=== PATIENT | female | born 1955 | race Caucasian/White ===

== ENCOUNTER 2024-12-04 12:50 | Inpatient (IN) | payer MEDICARE, MEDICAID ==
[~2024-12-04] VITALS: Ht 157.5 cm; Wt 42.4 kg
[2024-12-04 12:52] VITALS: O2SAT 99
[2024-12-04 14:34] LABS: HEMATOCRIT. 38.9 % (36.0-48.0); HEMOGLOBIN. 13.0 g/dL (12.0-16.0); MEAN PLATELET VOLUME 8.0 fl (7.4-10.4); PLATELET 261 x1000/uL (130-400); RED BLOOD CELL COUNT 4.16 mill/uL (4.2-5.4); RED CELL DISTRIBUTION WIDTH 13.9 % (11.6-14.6)
[2024-12-04 14:46] LABS: INR 1.0
[2024-12-04 14:49] LABS: CREATININE 0.5 mg/dL (0.6-1.0); UREA NITROGEN BLOOD 14 mg/dL (9-23)
[2024-12-04 14:51] LABS: ASPARTATE AMINOTRANSFERASE 44 IU/L (<34); BILIRUBIN DIRECT 0.1 mg/dL (<=3.0); BILIRUBIN TOTAL 0.5 mg/dL (0.1-1.0); PROTEIN TOTAL 7.1 g/dL (6.0-8.3)
[2024-12-04 14:55] LABS: BAND% 24.0 % (1.0-6.0); EOSINOPHILS % MANUAL 1.0 % (0.0-5.0); LYMPHOCYTES % MANUAL 9.0 % (20.0-60.0); MONOCYTES % MANUAL 4.0 % (2.0-8.0); NEUTROPHILS % MANUAL 62.0 % (45.0-75.0); PLATELET ESTIMATE NORMAL; TROPONIN I HIGH SENSITIVITY 218 ng/L (3.0-34)
[2024-12-04] MEDS: ASPIRIN 325MG EC TABLET PO ONE (15:54)
[2024-12-04] MEDS: ENOXAPARIN 40MG/0.4ML SYR SUBCUT ONE (15:58)
[2024-12-04 16:47] LABS: TROPONIN I HIGH SENSITIVITY 437 ng/L (3.0-34)
[2024-12-04 20:00] VITALS: BP 105/61; PULSE 57; RESP 18; TEMP 36.5848
[2024-12-04] MEDS ORDERED: DOCUSATE SODIUM 100MG CAPSULE PO PRN (20:30)
[2024-12-04] MEDS ORDERED: ACETAMINOPHEN 650MG SUPP PR PRN (20:30)
[2024-12-04] MEDS ORDERED: IPRATROPIUM/ALBUTEROL 0.5-3(2.5)MG/3ML NEB HHN PRN (20:30)
[2024-12-04] MEDS ORDERED: GUAIFENESIN 200MG/10ML SUGAR FREE UDC PO PRN (20:30)
[2024-12-04] MEDS ORDERED: ONDANSETRON HCL 4MG/2ML INJ IV PRN (20:30)
[2024-12-04] MEDS ORDERED: PRAV10TA35 PO (22:05)
[2024-12-04] MEDS ORDERED: ESCI20TA37 PO (22:05)
[2024-12-04] MEDS ORDERED: ARIP5TAB51 PO (22:05)
[2024-12-04] MEDS ORDERED: MULT-1318 PO (22:53)
[2024-12-04] MEDS ORDERED: CHOL2000 PO (22:53)
[2024-12-04] MEDS: PIPERACILLIN/TAZO 3.375G/50ML 50 ML IV SCH (23:23)
[2024-12-04] MEDS: DEXT 5%/0.45% NACL 1000ML 1,000 ML IV ONE (23:23)
[2024-12-05] VITALS: BP 78/44; PULSE 70; RESP 18; TEMP 36.3; O2SAT 94
[2024-12-05 00:05] LABS: PHOSPHORUS 3.8 mg/dL (2.5-4.9)
[2024-12-05] MEDS: VANCOMYCIN 1G PREMIX 200 ML IV SCH (00:06)
[2024-12-05 00:07] LABS: CREATINE KINASE MB FRACTION 3.1 ng/mL (0.5-3.6)
[2024-12-05 00:49] LABS: TROPONIN I HIGH SENSITIVITY 454 ng/L (3.0-34)
[2024-12-05 04:00] VITALS: BP 74/40; PULSE 66; RESP 18; TEMP 36.2; O2SAT 98
[2024-12-05 05:55] LABS: CLARITY URINE CLEAR (CLEAR); COLOR URINE YELLOW (YELLOW); GLUCOSE URINE NEGATIVE (NEGATIVE); KETONES URINE NEGATIVE (NEGATIVE); LEUKOCYTE ESTERASE URINE NEGATIVE (NEGATIVE); NITRITE URINE NEGATIVE (NEGATIVE); OCCULT BLOOD URINE NEGATIVE (NEGATIVE); PH URINE 6.0 (4.5-8.0); PROTEIN URINE TRACE (NEGATIVE); SPECIFIC GRAVITY URINE 1.019 (1.005-1.030); UROBILINOGEN URINE 0.2 E.U./dL (0.2-1.0)
[2024-12-05 06:24] LABS: SQUAMOUS EPITHELIAL CELL URINE FEW /lpf (RARE/1+)
[2024-12-05 06:25] LABS: PLATELET 218 x1000/uL (130-400); RED BLOOD CELL COUNT 3.75 mill/uL (4.2-5.4); RED CELL DISTRIBUTION WIDTH 13.6 % (11.6-14.6)
[2024-12-05 06:28] LABS: RBC URINE 0-2 /hpf (0-2)
[2024-12-05 06:28] LABS: CREATINE KINASE MB FRACTION 2.6 ng/mL (0.5-3.6); CREATININE 0.4 mg/dL (0.6-1.0); TRIGLYCERIDE 49 mg/dL (0-150); UREA NITROGEN BLOOD 13 mg/dL (9-23)
[2024-12-05 06:29] LABS: LDL CHOLESTEROL 130 mg/dL (5-100)
[2024-12-05 06:29] LABS: BACTERIA URINE NONE SEEN
[2024-12-05 06:30] LABS: PHOSPHORUS 3.5 mg/dL (2.5-4.9)
[2024-12-05 06:32] LABS: T4 FREE 1.01 ng/dL (0.89-1.76)
[2024-12-05 06:34] LABS: TROPONIN I HIGH SENSITIVITY 197 ng/L (3.0-34)
[2024-12-05] MEDS: MIDODRINE HCL 5MG TABLET PO PRN ×2 (08:50→17:24)
[2024-12-05] MEDS: PANTOPRAZOLE SODIUM 40 MG/VIAL IV SCH (08:59)
[2024-12-05] MEDS: CHOLECALCIFEROL (D3) 1000 UNIT TABLET PO SCH (09:00)
[2024-12-05] MEDS ORDERED: VANCOMYCIN 500MG/100ML IV SCH (09:00)
[2024-12-05] MEDS: MULTIVITAMINS,THER W-MINERALS TABLET PO SCH (09:00)
[2024-12-05] MEDS: CITALOPRAM HYDROBROMIDE 10MG TABLET PO SCH (09:00)
[2024-12-05] MEDS: ASPIRIN 81MG TABLET PO SCH ×2 (09:00)
[2024-12-05] MEDS ORDERED: VANCOMYCIN 500 MG in DEXT 5% WATER 100 ML IV SCH (09:00)
[2024-12-05] MEDS: SODIUM CHLORIDE 0.9% 1,000 ML IV ONE (09:09)
[2024-12-05] MEDS: ENOXAPARIN 30MG/0.3ML SYR SUBCUT SCH (09:10)
[2024-12-05 09:37] LABS: TRIGLYCERIDE 50.0 mg/dL (0-150)
[2024-12-05 09:38] LABS: LDL CHOLESTEROL 133.0 mg/dL (5-100)
[2024-12-05 09:42] LABS: T4 FREE 1.02 ng/dL (0.89-1.76)
[2024-12-05] MEDS: SODIUM CHLORIDE 0.9% 1,000 ML IV SCH (15:42)
[2024-12-05] MEDS ORDERED: MIDODRINE HCL 5MG TABLET ONE (15:58)
[2024-12-05 16:00] VITALS: BP 82/41; PULSE 51; RESP 16; TEMP 36.3; O2SAT 99
[2024-12-05] MEDS: FLUDROCORTISONE ACETATE 0.1MG TABLET PO SCH (16:17)
[2024-12-05 18:38] VITALS: BP 98/36
[2024-12-05 20:00] VITALS: BP 91/34; PULSE 56; RESP 16; TEMP 36.4; O2SAT 98
[2024-12-05] MEDS: VANCOMYCIN 750MG PREMIX 150 ML IV SCH (20:29)
[2024-12-05] MEDS: ARIPIPRAZOLE 5MG TABLET PO SCH (20:30)
[2024-12-05] MEDS: ATORVASTATIN CALCIUM 20MG TABLET PO SCH (20:30)
[2024-12-05] MEDS: SODIUM CHLORIDE 0.9% 500 ML IV ONE (20:31)
[2024-12-06] VITALS: BP 94/39; PULSE 48; RESP 16; TEMP 36.3; O2SAT 99
[2024-12-06 02:01] LABS: CREATINE KINASE MB FRACTION 2.6 ng/mL (0.5-3.6)
[2024-12-06 02:05] LABS: TROPONIN I HIGH SENSITIVITY 36.0 ng/L (3.0-34)
[2024-12-06 04:00] VITALS: BP 93/44; PULSE 53; RESP 16; TEMP 36.3; O2SAT 98
[2024-12-06 08:00] VITALS: BP 95/40; PULSE 57; RESP 16; TEMP 36.8; O2SAT 98
[2024-12-06 12:00] VITALS: BP 94/40; PULSE 57; RESP 16; TEMP 36.5; O2SAT 99
[2024-12-06 16:00] VITALS: BP 86/38; PULSE 53; RESP 16; TEMP 36.9; O2SAT 100
[2024-12-06 19:20] LABS: CREATINE KINASE MB FRACTION 3.9 ng/mL (0.5-3.6); TROPONIN I HIGH SENSITIVITY 20.0 ng/L (3.0-34)
[2024-12-06 20:00] VITALS: BP 90/45; PULSE 60; RESP 16; TEMP 36.8; O2SAT 98
[2024-12-07] VITALS: BP 86/40; PULSE 65; RESP 19; TEMP 36.6; O2SAT 98
[2024-12-07] MEDS: SODIUM CHLORIDE 0.9% 500 ML IV ONE (01:15)
[2024-12-07 04:00] VITALS: BP 114/48; PULSE 57; RESP 18; TEMP 36.3; O2SAT 99
[2024-12-07 07:12] LABS: BASOPHILS % 0.7 % (0.0-2.0); EOSINOPHILS % 1.3 % (0.0-5.0); HEMATOCRIT. 31.9 % (36.0-48.0); HEMOGLOBIN. 10.8 g/dL (12.0-16.0); LYMPHOCYTES % 22.2 % (20.0-50.0); MEAN PLATELET VOLUME 8.5 fl (7.4-10.4); MONOCYTES % 8.0 % (2.0-8.0); NEUTROPHILS % 67.8 % (40.0-76.0); PLATELET 176 x1000/uL (130-400); RED BLOOD CELL COUNT 3.42 mill/uL (4.2-5.4); RED CELL DISTRIBUTION WIDTH 13.5 % (11.6-14.6)
[2024-12-07 07:14] LABS: CREATININE 0.3 mg/dL (0.6-1.0); UREA NITROGEN BLOOD 9 mg/dL (9-23)
[2024-12-07 08:00] VITALS: BP 80/39; PULSE 55; RESP 16; TEMP 36.6; O2SAT 100
[2024-12-07] MEDS ORDERED: POTASSIUM CHLORIDE 40 MEQ in DEXT 5% WATER 230 ML IV ONE (08:30)
[2024-12-07] MEDS: KCL 20MEQ/100ML X 2 FOR TOTAL KCL 40MEQ/200ML IV SCH (10:03)
[2024-12-07] MEDS: FAMOTIDINE 20MG/2ML VIAL IV SCH (10:07)
[2024-12-07 10:44] LABS: PHOSPHORUS 2.9 mg/dL (2.5-4.9)
[2024-12-07] MEDS ORDERED: IOHEXOL-350 100 ML BOTTLE ONE (10:58)
[2024-12-07 12:16] VITALS: BP 96/50; PULSE 62; RESP 16; TEMP 36.4; O2SAT 99
[2024-12-07] MEDS ORDERED: FLUD0.1T PO (13:22)
[2024-12-07] MEDS ORDERED: ASPI-1160 PO (13:22)
[2024-12-07] MEDS ORDERED: PEPJ2 IV (13:22)
[2024-12-07] MEDS ORDERED: ATOR20TA PO (13:22)
[2024-12-07] MEDS ORDERED: MIDO2.5T3 MT (13:22)
[2024-12-07] MEDS: PIPERACILLIN/TAZO 3.375G/50ML 50 ML IV SCH (13:59)
[2024-12-07 16:00] VITALS: BP 88/40; PULSE 57; RESP 16; TEMP 36.7; O2SAT 99
[2024-12-07 20:00] VITALS: BP 82/40; PULSE 78; RESP 18; TEMP 36.3; O2SAT 99
[2024-12-08] VITALS: BP 86/41; PULSE 58; RESP 18; TEMP 36.1; O2SAT 98
[2024-12-08 04:00] VITALS: BP_SYST 71; BP_SYST 77; BP_DIAS 32; BP_DIAS 40; PULSE 56; RESP 18; TEMP 36.2; O2SAT 97
[2024-12-08] MEDS: SODIUM CHLORIDE 0.9% 500 ML IV ONE (05:42)
[2024-12-08 08:00] VITALS: BP 93/32; PULSE 53; RESP 16; TEMP 36.2; O2SAT 97
[2024-12-08 12:00] VITALS: BP 76/33; PULSE 62; RESP 16; TEMP 36.4; O2SAT 100
[2024-12-08 13:30] VITALS: BP 91/44; PULSE 66; RESP 16; TEMP 97.5
== END 2024-12-08 15:40 | disposition home or self-care (01) | DRG 871 ==
LOC: ER 12:50 → 5WST 17:24 → EDBEDREQ 17:28 → EDBEDREQTM 17:28 → ENRESERV 19:12
PROVIDERS: ADMIT Internal Medicine; ATTEND Internal Medicine
DX: A41.9 Sepsis, unspecified organism (principal); I21.A1 Myocardial infarction type 2; J69.0 Pneumonitis due to inhalation of food and vomit; G81.94 Hemiplegia, unspecified affecting left nondominant side; Z68.1 Body mass index [BMI] 19.9 or less, adult; R64 Cachexia; I24.9 Acute ischemic heart disease, unspecified; I10 Essential (primary) hypertension; F32.9 Major depressive disorder, single episode, unspecified; R62.7 Adult failure to thrive; R13.10 Dysphagia, unspecified; E78.00 Pure hypercholesterolemia, unspecified; I95.89 Other hypotension; Z87.820 Personal history of traumatic brain injury; Z79.52 Long term (current) use of systemic steroids; Z79.899 Other long term (current) drug therapy
CPT/HCPCS: 36415; 70490; 71045; 71250; 71275; 74230; 80048; 80061; 80076; 80202; 81003; 82140; 82533; 82550; 82553; 82962; 83036; 83605; 83735; 83880; 83930; 84100; 84134; 84145; 84439; 84443; 84484; 85025; 85027; 85379; 92610; 92611; 93005; 93306; 93970; 96374; 99291; J1308; J1650; J2470; J2543; J3373; J3480; J7030; J7060; Q9967